=== PATIENT | male | born 1960 | race Caucasian/White ===

== ENCOUNTER → 2016-06-08 | Day surgery (SDC) | payer OTHER ==
--- NOTE | 2016-06-06 09:35 | History & Physical Pre-Op ---
General Information and HPI History of Present Illness: Jayden is a 56-year-old male with a long-standing and worsening complaint of a painful arthritic left ankle. The patient has a remote history of an ankle trauma and now complains of a painful nonunion. Patient has failed an extended course of conservative care, including shoe gear and activity modification, rest , immobilization and courses of NSAIDs. None of this is yielded him any significant relief. The patient presents today for preoperative surgical consultation. Allergies/Medications Allergies: Coded Allergies: No Known Allergies (05/12/16) Home Med list Valsartan 160 MG TABLET 1 TAB PO DAILY HEART (Reported) Past History Medical History Neurological: NONE EENT: NONE Cardiovascular: hypertension, hyperlipidemia Respiratory: NONE Hepatic: NONE Renal: NINI once in the past Musculoskeletal: NONE Psychiatric: NONE Endocrine: NONE Blood Disorders: NONE Cancer(s): NONE Surgical History Pertinent Surgical History: none Review of Systems Review of Systems: Unremarkable except for that noted in history of present illness Exam & Diagnostic Data Physical Exam: Lungs clear bilaterally. Heart sounds rate and rhythm regular. Lower extremity physical exam demonstrates intact pedal pulses bilaterally. Pulses dorsalis pedis and posterior tibial arteries are palpable bilaterally. Patient without any sensory motor deficits. Deep tendon reflexes grossly intact. Patient noted to have same and pain with palpation over the lateral aspect of the left ankle. Assessment/Plan Assessment/Plan: Left ankle osteoarthritis. A lengthy discussion reviewing both surgical and conservative options held the patient at bedside and the patient elects to go further surgery despite the risks. As Ranked By This Provider Problem List: 1. Primary osteoarthritis, left ankle and foot Attending MD Review Statement Attending Statement Attending MD Statement: examined this patient
[~2016-06-08] VITALS: Ht 185.4 cm; Wt 78.5 kg
[~2016-06-08] MED LIST: IBUPROFEN800 M1 PO; PERCOCET 5-3251 EACH PO; VALSARTAN160 M1 PO; ZOFRAN ODT4 M1 SL
--- NOTE | 2016-06-08 14:01 | Operative Report ---
Operative/Inv Procedure Report Surgery Date: 06/08/16 Name of Procedure: 1 left ankle arthrotomy 2 intraoperative administration of ankle block anesthesia Pre-Operative Diagnosis: 1 severe degenerative joint disease left ankle Post-Operative Diagnosis: The same Estimated Blood Loss: scant Surgeon/Clinical Cytopathologist: MARY CONROY,GEORGIE Sharp DPM Anesthesia: moderate sedation, block Operative/Procedure Note Note: After obtaining informed consent the patient was brought to the operating room and placed on the operating table in the supine position. The patient isn't securely fastened to the operating table utilizing safety belt. After administration of IV sedation, 10 mL of 0.5% Marcaine plain about the patient's left ankle. The left foot and ankle and screw prepped and draped in usual aseptic manner. A well-padded ankle tourniquet was placed but the patient's left lower extremity. 2 g of Ancef were delivered intravenously times one dose. Left lower extremity is elevated to exsanguinate the limb, which point the ankle tourniquet inflated to 250 mmHg. Digitorectal medial left ankle where curvilinear incision was made overlying the medial malleolus. The skin was incised with 15 blade and deepened subtenons tissues all vital neurovascular structures were identified protected. The deltoid ligament was and reflected the capsule was incised. A large ossicle was identified was freed of its adjacent soft tissue attachments and passed from the operative field was sent a specimen for pathologic inspection. The ankle joint was then irrigated Reji normal sterile saline and debrided with curettage and a rongeur. The deltoid ligament was then reapproximated with 3-0 Vicryl and the subtenons tissues reapproximated 4-0 Vicryl skin is then reapproximated 4-0 nylon. Incision was dressed with Xeroform 4 x 4's Kerlix and an Vincent wrap. The patient is noted tolerate both procedure and anesthesia well and the patient was transported from the operating room to recovery by sent stable best assess intact to all digits left foot.
== END ==
LOC: STS 04:06
DX: M19.072 Primary osteoarthritis, left ankle and foot (principal); I10 Essential (primary) hypertension; E78.5 Hyperlipidemia, unspecified
CPT/HCPCS: 88305; J0690; J2001; J2250

== ENCOUNTER → 2017-07-26 | Day surgery (SDC) | payer OTHER ==
--- NOTE | 2017-07-12 14:05 | Operative Report ---
Operative/Inv Procedure Report Surgery Date: 07/12/17 Name of Procedure: cancelled Pre-Operative Diagnosis: bilat stones Post-Operative Diagnosis: same Estimated Blood Loss: none Surgeon/Lumber Material Handler: Eliel Moss MD Anesthesia: none Operative/Procedure Note Note: cancelled by anesthesia due to uncontrolled HTN Discharge Disposition: cancelled CC: Eliel Moss MD
[~2017-07-26] VITALS: Ht 182.9 cm; Wt 89.4 kg
--- NOTE | 2017-07-26 13:08 | Operative Report ---
Operative/Inv Procedure Report Surgery Date: 07/26/17 Name of Procedure: aimee UVJ stone ESWL. FLuoroscopy Pre-Operative Diagnosis: right UVJ stone with colic: bilateral large renal stones. Post-Operative Diagnosis: same Estimated Blood Loss: none Surgeon/Sleep Technician: Eliel Moss MD Anesthesia: moderate sedation Specimens: none Complications: none Operative/Procedure Note Note: The patient was taken to the operating room and placed on the ESWL table in supine position. Time out was performed, with the patient awake, to confirm identity, procedure, laterality, and other pertinent tania-operative information. After adequate anesthesia, the patient was positioned so that the right flank was placed over the ESWL table cut-out, and overlying the dome of the shockwave generator. C-arm fluroscopy, as well as renal US was used to locate the stone, and evaluate the right kidney. The stone was faintly visible on fluroloscopy at the right mid-ureter. Renal US confirmed mild hydronephrosis with no additional stone seen in the right kidney. The right UVJ/ureter stone was approximate 5 mm in size, and visible with fluoroscopy. Using the C-Arm fluoroscopy in an A-P, and Oblique view, the position of the ureter stone was optimized at the center of the crosshairs. At this point, E.S.W.L. was initiated at low power levels x 200 shocks. After noting the patient's tolerance to the shockwaves, the shockwave power level was quickly maximized. At the end of the procedure, the composition of the stone had changed significantly indicating the pulverization of the ureter stone. A total of 3000 shockwaves were delivered to the stone in order to achieve adequate lithotrypsy. The patient tolerated the procedures well, was awakened, and taken to recovery in satisfactory condition via stretcher. The pt will be dischared to home with pain meds, diet orders, and intructions to catch fragments with straining the urine. The patient is to have follow-up renal ultrasound and KUB within 1-2 weeks and f/u in the office after discharge. Discharge Disposition: Same Day Admissions CC: Eliel Moss MD
== END ==
LOC: STS 03:14
DX: N13.2 Hydronephrosis with renal and ureteral calculous obstruction (principal); I10 Essential (primary) hypertension; Z87.891 Personal history of nicotine dependence
CPT/HCPCS: J2250